=== PATIENT | male | born 1960 | race American Indian/Alaskan Native ===

== ENCOUNTER 2018-10-28 08:27 | Emergency (ER) | payer BC ==
[2018-10-28 08:48] VITALS: BMI 35.2
[2018-10-28 08:58] VITALS: RESP 18
--- NOTE | 2018-10-28 09:14 | ED PDOC ---
Arrival/HPI - General Chief Complaint: Back Pain Time Seen by Provider: 10/28/18 08:29 Historian: Patient - History of Present Illness Narrative History of Present Illness (Text): 10/28/18 09:11 A 58 year old male presents to the emergency department with a complaint of left sided back pain for 1.5 weeks. The patient states that he does not recall injury or trauma to the back. He reports exacerbation of pain when he lays down and breathes. He reports seeing his PMD for his symptoms for which he was prescribed 800 mg Ibuprofen. He reports no relief of his symptoms. The patient also complains of swelling to his left lower extremity. The patient denies fevers, chills, headache, dizziness, chest pain, shortness of breath, dyspnea on exertion, cough, abdominal pain, nausea, vomiting, diarrhea, neck pain, urinary/bowel changes, or any other complaint. Time/Duration: > week (1.5 weeks) Symptom Onset: Sudden Symptom Course: Unchanged Activities at Onset: Rest, Light Context: Home Past Medical History - Provider Review Nursing Documentation Reviewed: Yes - Cardiac Hx Atrial Fibrillation: Yes Hx Congestive Heart Failure: Yes Hx Hypertension: Yes - Musculoskeletal/Rheumatological Hx Falls: No - Psychiatric Hx Substance Use: No - Surgical History Hx Coronary Stent: Yes - Anesthesia Hx Anesthesia: Yes Hx Anesthesia Reactions: No Hx Malignant Hyperthermia: No - Suicidal Assessment Feels Threatened In Home Enviroment: No Family/Social History - Physician Review Nursing Documentation Reviewed: Yes Family/Social History: No Known Family HX Smoking Status: Former Smoker Hx Alcohol Use: No Hx Substance Use: No Allergies/Home Meds Allergies/Adverse Reactions: Allergies No Known Allergies Allergy (Verified 11/12/14 10:24) Home Medications: Home Meds Medication Instructions Recorded Confirmed Aspirin 81 mg PO DAILY 11/12/14 10/28/18 Clopidogrel 75 mg PO DAILY 11/12/14 10/28/18 Furosemide 20 mg PO DAILY 11/12/14 10/28/18 Lisinopril 10 mg PO DAILY 11/12/14 10/28/18 Metoprolol 50 mg PO DAILY 11/12/14 10/28/18 OMEGA 3 1 gr PO DAILY 11/12/14 10/28/18 Review of Systems - Physician Review All systems were reviewed & negative as marked: Yes - Review of Systems Constitutional: absent: Fevers Respiratory: absent: SOB, Cough Cardiovascular: absent: Chest Pain, BAKER Gastrointestinal: absent: Abdominal Pain, Stool Changes, Diarrhea, Vomiting Genitourinary Male: absent: Urinary Output Changes Musculoskeletal: Back Pain. absent: Neck Pain Neurological: absent: Headache, Dizziness Physical Exam - Physical Exam Narrative Physical Exam (Text): 10/28/18 09:16 Gen: VS reviewed, alert, well developed, well nourished, nontoxic, mild distress. ENT: normal pharynx. Eye: EOMI, PERRL. Neck: no JVD, supple, no adenopathy. CV: regular rate, regular rhythm, no rubs, no murmur, no gallops, S1, S2, pulses equal and strong. Pulm: no distress, clear to auscultation, no wheeze, no rhonchi, breath sounds equal, no rales. Abd: soft, nontender, no guarding, no rebound, no rigidity, normal bowel sounds. Ext: Mild edema swelling to the left leg when compared to right leg. No pitting edema. Left lower back pain exacerbated with body position. No trauma, no associated fever, numbness, weakness, or saddle anesthesia. Skin: good color, no rash, no cyanosis. Psych: responds appropriately to questions, normal affect. Neuro: oriented x 3, CN2-12 intact grossly, motor intact, sensation intact. Vital Signs Reviewed: Yes Vital Signs Temp Pulse Resp BP Pulse Ox 10/28/18 08:57 98.1 F 48 L 18 139/82 99 Temperature: Afebrile Blood Pressure: Normal Pulse: Bradycardic Respiratory Rate: Normal Appearance: Positive for: Well-Appearing, Non-Toxic, Comfortable Pain Distress: None Mental Status: Positive for: Alert and Oriented X 3 Medical Decision Making ED Course and Treatment: 10/28/18 09:18 Impression: A 58 year old male presents to the emergency department with a complaint of left sided back pain for 1.5 weeks. Plan: -- Left Lower Extremity Ultrasound -- LS Spine X- Ray -- Tylenol, Flexeril, and Toradol -- Reassess and disposition Prior Visits: Notes and results from previous visits were reviewed. Progress Notes: 10/28/18 13:43 patient was seen for left sided back pain, excacerbated with movement and body position. clinical presentation consistent with radiculopathy but there are no neuro deficits and the pain is clearly reproducible to superficial palpation.CT was done to rule out renal colic. patient referred back to his pcp for follow up care. patient is noticed to have a sinus bradycardia but does not exhibit any s/s of cardiopulmonary decompensation 10/28/18 13:51 - RAD Interpretation Narrative RAD Interpretations (Text): PROCEDURE: Radiographs of the Lumbar Spine Signed By: Desmond Amato MD Date Signed: 10/28/2018 1029 IMPRESSION: Unremarkable radiographs of the lumbar spine. PROCEDURE: Left lower extremity venous US Signed By: Yasmani Chandler MD Date Signed: 10/28/2018 1211 IMPRESSION: 1. No sonographic evidence for deep venous thrombosis in the visualized segemnts of the left lower extremity. PROCEDURE: CT Abdomen and Pelvis without intravenous contrast Signed By: Nasir Marshall MD Date Signed: 10/28/2018 1330 IMPRESSION: Left- sided colonic diverticulosis without evidence of diverticulitis. Radiology Orders: 10/28/18 09:01 LS SPINE WITH OBL > 18 YRS OLD [RAD] Stat 10/28/18 09:03 DUPLEX LOWER EXTRM VEIN LEFT [US] Stat - Medication Orders Current Medication Orders: Discontinued Medications Acetaminophen (Tylenol 325mg Tab) 975 mg PO STAT STA Stop: 10/28/18 09:02 Cyclobenzaprine HCl (Flexeril) 5 mg PO STAT STA Stop: 10/28/18 09:02 Ketorolac Tromethamine (Toradol) 60 mg IM STAT STA Stop: 10/28/18 09:02 - Scribe Statement The provider has reviewed the documentation as recorded by the Raquel Paz Provider Scribe Attestation: All medical record entries made by the Scribe were at my direction and personally dictated by me. I have reviewed the chart and agree that the record accurately reflects my personal performance of the history, physical exam, medical decision making, and the department course for this patient. I have also personally directed, reviewed, and agree with the discharge instructions and disposition. Disposition/Present on Arrival - Present on Arrival Any Indicators Present on Arrival: No History of DVT/PE: No History of Uncontrolled Diabetes: No Urinary Catheter: No History of Decub. Ulcer: No History Surgical Site Infection Following: None - Disposition Have Diagnosis and Disposition been Completed?: Yes Diagnosis: Radiculopathy of lumbar region Disposition: HOME/ ROUTINE Disposition Time: 13:46 Patient Plan: Discharge Patient Problems: Current Active Problems Problem Status Onset Radiculopathy of lumbar region Acute Condition: STABLE Discharge Instructions (ExitCare): Radiculopathy (DC) Additional Instructions: you must follow up with your primary care doctor. return for any new or worsening symptoms. Prescriptions: Cyclobenzaprine [Flexeril] 5 mg PO TID #15 tab Lidocaine [Lidocaine Pain Relief] 1 each TP Q12 #14 adh..patch oxyCODONE/Acetaminophen [Percocet 5/325 mg Tab] 1 ea PO QID #12 tab Sennosides/Docusate Sodium [Colace 2-in-1 Tablet] 2 each PO BID 7 Days #14 tablet Referrals: Loyd Florentino MD [Primary Care Provider] - Follow up with primary Forms: [employer] [facility] (Armenian)
[2018-10-28 09:47] LABS: PH,URINE 6.5 (4.7-8.0); URINE BILIRUBIN NEGATIVE (NEGATIVE); URINE BLOOD NEGATIVE (NEGATIVE); URINE GLUCOSE (UA) NEGATIVE (NEGATIVE); URINE LEUKOCYTE ESTERASE NEGATIVE Leu/uL (NEGATIVE); URINE PROTEIN TRACE mg/dL (<30 mg/dL)
[2018-10-28 09:49] LABS: URINE APPEARANCE CLEAR (CLEAR); URINE COLOR YELLOW (YELLOW)
[2018-10-28 09:52] LABS: URINE BACTERIA FEW /hpf; URINE EPITHELIAL CELLS 0 - 2 /hpf (0-5)
--- NOTE | 2018-10-28 10:33 | RAD ---
Date of service: 10/28/2018 PROCEDURE: Radiographs of the Lumbar Spine. HISTORY: low back pain COMPARISON: No prior. FINDINGS: BONES: Normal alignment. No listhesis. No fracture. DISC SPACES: Unremarkable. OTHER FINDINGS: None. IMPRESSION: Unremarkable radiographs of the lumbar spine.
[2018-10-28 10:46] LABS: BARBITURATES, UR NEGATIVE (NEGATIVE); BENZODIAZEPINES, UR NEGATIVE (NEGATIVE); OPIATES, UR NEGATIVE (NEGATIVE); PHENCYCLIDINE, UR NEGATIVE (NEGATIVE)
--- NOTE | 2018-10-28 12:15 | US ---
PROCEDURE: Left lower extremity venous US HISTORY: Leg pain and swelling. Evaluate for DVT. PHYSICIAN(S): Yasmani Chandler MD. TECHNIQUE: Duplex sonography and color-flow Doppler with graded compression were used to evaluate the deep venous system of the left lower extremity. FINDINGS: The visualized deep venous system of the left lower extremity is sonographically normal and compressible. Normal wave forms and augmentation are seen. There is no sonographic evidence for deep venous thrombosis in the visualized segments of the left lower extremity. IMPRESSION: 1. No sonographic evidence for deep venous thrombosis in the visualized segments of the left lower extremity.
--- NOTE | 2018-10-28 13:34 | CT ---
Date of service: 10/28/2018 PROCEDURE: CT Abdomen and Pelvis without intravenous contrast HISTORY: left flank pain COMPARISON: None. TECHNIQUE: Technique. Contrast dose: Radiation dose: Total exam DLP = 1032.23 mGy-cm. This CT exam was performed using one or more of the following dose reduction techniques: Automated exposure control, adjustment of the mA and/or kV according to patient size, and/or use of iterative reconstruction technique. FINDINGS: LOWER THORAX: Unremarkable. LIVER: Unremarkable. No gross lesion or ductal dilatation. GALLBLADDER AND BILE DUCTS: Unremarkable. PANCREAS: Unremarkable. No gross lesion or ductal dilatation. SPLEEN: Unremarkable. ADRENALS: Unremarkable. No mass. KIDNEYS AND URETERS: Unremarkable. No hydronephrosis. No solid mass. VASCULATURE: Unremarkable. No aortic aneurysm. No aortic atherosclerotic calcification or mural plaque present. BOWEL: Left-sided colonic diverticulosis. No obstruction. No gross mural thickening. APPENDIX: Unremarkable. Normal appendix. PERITONEUM: Unremarkable. No free fluid. No free air. LYMPH NODES: Unremarkable. No enlarged lymph nodes. BLADDER: Unremarkable. REPRODUCTIVE: Unremarkable. BONES: No acute fracture. OTHER FINDINGS: None. IMPRESSION: Left-sided colonic diverticulosis without evidence of diverticulitis
[2018-10-28 14:24] VITALS: BP 132/89; PULSE 48; TEMP 98.2; O2SAT 99
== END 2018-10-28 14:10 | disposition home or self-care (01) ==
LOC: ED 08:27
DX: M54.16 Radiculopathy, lumbar region (principal); I48.91 Unspecified atrial fibrillation; I50.9 Heart failure, unspecified; I10 Essential (primary) hypertension; Z87.891 Personal history of nicotine dependence
CPT/HCPCS: 72110; 74176; 81001; 93971; 96372; 99283; G0480; J1885